=== PATIENT | male | born 1985 | race African-American/Black ===

== ENCOUNTER 2023-01-03 10:12 | Emergency (ER) | payer OTHER ==
[2023-01-03 10:24] VITALS: BP 127/76; PULSE 101; RESP 18; TEMP 97.8; BMI 21.7
[2023-01-03] MEDS ORDERED: cefTRIAXone SODIUM 1 GM VIAL IM ONE (10:59)
[2023-01-03 11:57] LABS: EPI CELLS 6 /uL (0-25.1); HYALINE CASTS 1 /uL (0-3.1); URINE APPEARANCE CLEAR; URINE BACTERIA 11 /uL (0-1359); URINE BILIRUBIN NEGATIVE (NEGATIVE); URINE COLOR YELLOW; URINE GLUCOSE (UA) NEGATIVE (NEGATIVE); URINE KETONE TRACE (NEGATIVE); URINE LEUK ESTERASE 1+ (NEGATIVE); URINE NITRITE NEGATIVE (NEGATIVE); URINE PROTEIN 1+ (NEGATIVE); URINE RBC 22 /uL (0-23.9); URINE WBC 298 /uL (0-25.8)
[2023-01-03] MEDS ORDERED: DOXYCYCLINE HYCLATE 100 MG CAPSULE PO ONE ×2 (12:00→12:05)
[2023-01-03] MEDS ORDERED: metroNIDAZOLE 500 MG TABLET PO ONE (12:00)
[2023-01-03] MEDS ORDERED: LIDOCAINE HCL 1%, 10 MG/ML (50 mL VIAL) SQ ONE (12:02)
[2023-01-03] MEDS ORDERED: metroNIDAZOLE 250 MG TABLET ONE (12:05)
== END 2023-01-03 12:24 | disposition home or self-care (01) ==
LOC: JER 10:12
DX: N34.1 Nonspecific urethritis (principal); A74.9 Chlamydial infection, unspecified
CPT/HCPCS: 36415; 81003; 86780; 87086; 87491; 87591; 87661; 99284-25

== ENCOUNTER 2025-01-27 02:12 | Emergency (ER) | payer OTHER ==
[2025-01-27] MEDS ORDERED: CEFAZOLIN 1 GM/D5W 1 GM/50 ML BAG ONE (02:19)
[2025-01-27] MEDS: CEFAZOLIN 1 GM in DEXTROSE 5%-WATER - 50 ML IVPB ONE (02:21)
[2025-01-27] MEDS: SODIUM CHLORIDE 0.9% 500 ML INFUS.BAG IV ONE (02:21)
[2025-01-27] MEDS ORDERED: DIPHTH,PERTUSS(ACELL),TET 0.5 ML DISP.SYRIN IM ONE (02:26)
[2025-01-27] MEDS: DIPHTH,PERTUSS(ACELL),TET 0.5 ML DISP.SYRIN IM ONE (02:30)
[2025-01-27 02:43] VITALS: TEMP 98.2; BMI 24.4
[2025-01-27 02:43] LABS: ABSOLUTE IMMATURE GRANULOCYTES 0.01 x10^3/uL (0.0-0.031); EOSINOPHIL % 2.2 % (0.8-7.0); EOSINOPHILS # 0.26 x10^3/uL (0.04-0.54); HEMATOCRIT 43.2 % (40.1-51.0); HEMOGLOBIN 13.7 g/dL (13.7-17.5); MCHC 31.7 g/dl (32.3-36.5); MEAN CELL VOLUME 76.9 fl (79.0-92.2); MEAN PLT VOLUME 11.1 fl (9.4-12.4); MONOCYTE # 0.65 x10^3/uL (0.30-0.82); MONOCYTE % 5.5 % (5.3-12.2); PLATELET COUNT 201 x10^3/uL (163-337); RDW 16.5 % (12.0-15.6)
[2025-01-27 02:51] LABS: INR 0.95 (0.83-1.09); PROTHROMBIN TIME (PATIENT) 10.5 SEC (9.7-13.0)
[2025-01-27 02:54] LABS: ACTIVATED PTT 26.8 SECONDS (25.2-36.5)
[2025-01-27] MEDS ORDERED: ONDANSETRON 4 MG/2 ML VIAL ONE (02:56)
[2025-01-27] MEDS: ONDANSETRON 4 MG/2 ML VIAL IVPUSH ONE (03:01)
[2025-01-27 03:03] LABS: POTASSIUM 3.4 mmol/L (3.5-5.1)
[2025-01-27 03:05] LABS: ALBUMIN 4.2 g/dl (3.4-5.0); BLOOD UREA NITROGEN 10.5 mg/dL (7-18); CALCIUM 9.1 mg/dL (8.5-10.1)
[2025-01-27 03:08] LABS: CREATININE 1.4 mg/dL (0.55-1.3)
[2025-01-27 03:11] LABS: BILIRUBIN,TOTAL 0.6 mg/dL (0.2-1); TOT PROT 7.7 g/dl (6.4-8.2)
[2025-01-27 03:12] VITALS: BP 132/94; RESP 18
[2025-01-27 03:22] VITALS: PULSE 76
[2025-01-27 03:27] LABS: LACTIC ACID 4.3 mmol/L (0.4-2.0)
== END 2025-01-27 03:20 | disposition short-term general hospital (02) ==
LOC: JER 02:12
PROC: 3E03329 Introduction of Other Anti-infective into Peripheral Vein, Percutaneous Approach (ICD-10-PCS; principal; 2025-01-27)
PROC: 3E03329 Introduction of Other Anti-infective into Peripheral Vein, Percutaneous Approach (ICD-10-PCS; 2025-01-27)
PROC: 3E033GC Introduction of Other Therapeutic Substance into Peripheral Vein, Percutaneous Approach (ICD-10-PCS; 2025-01-27)
DX: S31.114A Laceration without foreign body of abdominal wall, left lower quadrant without penetration into peritoneal cavity, initial encounter (principal); S21.112A Laceration without foreign body of left front wall of thorax without penetration into thoracic cavity, initial encounter; X99.9XXA Assault by unspecified sharp object, initial encounter
CPT/HCPCS: 36415; 71045-TC-FY; 74018-TC-FY; 80053; 80307; 83605; 84484; 85025; 85610; 85730; 86850; 86900; 86901; 90715; 93005; 93010; 96365; 96366; 96375; 99291